=== PATIENT | female | born 1960 | race Hispanic/Latino ===

== ENCOUNTER 2022-08-04 13:33 | Inpatient (IN) | payer OTHER, SELFPAY ==
[~2022-08-04 13:33] MED LIST: Iopamidol-370 76% 500 ML 1 ML ONE
[2022-08-04] MEDS ORDERED: Boostrix 0.5 ML (Tdap) VIAL (>/=7 yrs of age) ONE (13:42)
[2022-08-04] MEDS ORDERED: Morphine 4 MG/ML VIAL ONE (13:42)
[2022-08-04] MEDS ORDERED: CEFAZOLIN 2 GM VIAL ONE (13:42)
[2022-08-04 13:47] LABS: #Eosinphils 0.2 thou/uL (0.0-0.7); #Lymphocytes 4.2 thou/uL (1.20-3.40); #Monocytes 0.7 thou/uL (0.11-0.59); #Neutrophils 8.4 thou/uL (1.40-6.50); %Basophils 0.4 % (0.0-1.0); %Eosinophils 1.1 % (0.0-10.0); %Lymphocytes 31.1 % (21.0-51.0); %Monocytes 5.2 % (0.0-10.0); %Neutrophils 62.2 % (42.0-75.0); Hemoglobin 13.4 g/dL (12.0-16.0); Mean Corpuscular HGB CONC 33.6 g/dL (32.0-36.0); Mean Corpuscular Hemoglobin 32.7 pg (27.0-31.0); Mean Corpuscular Volume 97.4 fl (78.0-98.0); Mean Platelet Volume 8.1 fL (7.4-10.4); Platelet Count 226 10x3/uL (130-400); RBC Distribution Width 12.1 % (11.5-14.5); Red Blood Cell (RBC) Count 4.11 mill/uL (4.20-5.40); White Blood Cell (WBC) Count 13.6 10x3/uL (4.8-10.8)
[2022-08-04 13:58] LABS: PTT 22.4 sec (22.9-36.1); Prothrombin Time 13.4 sec (12.0-14.7)
[2022-08-04] MEDS ORDERED: hydrALAZINE 20 MG/ML VIAL ONE (14:13)
[2022-08-04 14:14] LABS: ALT (SGPT) 48 U/L (8-55); AST (SGOT) 75 U/L (5-34); Albumin 4.3 g/dL (3.4-4.8); Alkaline Phosphatase 104 U/L (40-110); Anion Gap 13 mmol/L (10-20); BUN (Urea Nitrogen) 24 mg/dL (9.8-20.1); Bilirubin, Total 0.6 mg/dL (0.2-1.2); Calc. Creatinine Clearance 0 mL/min (70-130); Calcium 8.9 mg/dL (7.8-10.44); Carbon Dioxide 23 mmol/L (23-31); Chloride 107 mmol/L (98-107); Estimated GFR 83; Glucose 137 mg/dL (80-115); Potassium 3.2 mmol/L (3.5-5.1); Protein, Total 7.3 g/dL (5.8-8.1); Sodium 140 mmol/L (136-145)
[2022-08-04] MEDS ORDERED: FENTANYL 50 MCG/ML 1 ML VIAL ONE (14:32)
[2022-08-04] MEDS ORDERED: Ondansetron PF 4 MG/2 ML Vial ONE (14:41)
[2022-08-04] MEDS ORDERED: niCARdipine 25 MG/10 ML VIAL ONE (14:45)
[2022-08-04] MEDS ORDERED: Dextrose 5% in Water 1,000 ML IV PRN (15:11)
[2022-08-04] MEDS ORDERED: Dextrose 50% Abboject 50 ML SYRINGE SLOW IVP PRN (15:11)
[2022-08-04] MEDS ORDERED: Morphine 4 MG/ML VIAL SLOW IVP PRN (15:11)
[2022-08-04] MEDS ORDERED: TETANUS, DIPHTHERIA TOX,ADULT (TDVAX) 0.5 ML VIAL IM ONE (15:11)
[2022-08-04] MEDS ORDERED: Morphine 2 MG/ML VIAL SLOW IVP PRN (15:11)
[2022-08-04 16:22] LABS: SARS-CoV-2 NAA Rapid Test Not Detected (NotDetected)
[2022-08-04 17:24] VITALS: BMI 42.2
[2022-08-04] MEDS: Sodium Chloride 0.9% 1,000 ML IV SCH (17:29)
[2022-08-04] MEDS: Acetaminophen 325 MG TAB PO SCH ×2 (18:45→23:14)
[2022-08-04] MEDS: Ipratropium/Albuterol 3 ML NEB NEB SCH (19:07)
[2022-08-04] MEDS: Famotidine/PF 20 mg/2ml Vial SLOW IVP SCH (20:24)
[2022-08-05] MEDS: Sodium Chloride 0.9% 1,000 ML IV SCH ×2 (02:11→12:32)
[2022-08-05 04:09] LABS: #Lymphocytes 1.1 thou/uL (1.20-3.40); #Monocytes 0.9 thou/uL (0.11-0.59); #Neutrophils 6.2 thou/uL (1.40-6.50); %Lymphocytes 13.7 % (21.0-51.0); %Neutrophils 75.2 % (42.0-75.0); Hemoglobin 12.4 g/dL (12.0-16.0); Mean Corpuscular HGB CONC 33.9 g/dL (32.0-36.0); Mean Corpuscular Volume 97.4 fl (78.0-98.0); Mean Platelet Volume 7.8 fL (7.4-10.4); Platelet Count 205 10x3/uL (130-400); RBC Distribution Width 12.2 % (11.5-14.5); Red Blood Cell (RBC) Count 3.74 mill/uL (4.20-5.40); White Blood Cell (WBC) Count 8.2 10x3/uL (4.8-10.8)
[2022-08-05] MEDS: Ondansetron PF 4 MG/2 ML Vial IVP PRN ×2 (04:29→15:12)
[2022-08-05 04:32] LABS: Anion Gap 14 mmol/L (10-20); BUN (Urea Nitrogen) 18 mg/dL (9.8-20.1); Calc. Creatinine Clearance 130 mL/min (70-130); Calcium 8.5 mg/dL (7.8-10.44); Carbon Dioxide 21 mmol/L (23-31); Chloride 108 mmol/L (98-107); Estimated GFR 98; Glucose 152 mg/dL (80-115); Magnesium 1.7 mg/dL (1.6-2.6); Phosphorus 2.7 mg/dL (2.3-4.7); Potassium 3.8 mmol/L (3.5-5.1); Sodium 139 mmol/L (136-145)
[2022-08-05] MEDS: Acetaminophen 325 MG TAB PO SCH ×3 (05:26→17:44)
[2022-08-05] MEDS ORDERED: Potassium Phosphate 15 MMOL, Magnesium Sulfate 2 GM in Sodium Chloride 0.9% 250 ML 250 ML IVPB SCH (07:15)
[2022-08-05] MEDS ORDERED: Magnesium 2 GM/50 ML(in water) 2 GM in Premix Bag 1 BAG IVPB SCH (07:15)
[2022-08-05] MEDS: Ipratropium/Albuterol 3 ML NEB NEB SCH ×3 (07:36→18:33)
[2022-08-05] MEDS: Famotidine/PF 20 mg/2ml Vial SLOW IVP SCH ×2 (08:21→20:10)
[2022-08-05] MEDS ORDERED: Morphine 2 MG/ML VIAL SLOW IVP PRN (09:07)
[2022-08-05] MEDS ORDERED: Cyclobenzaprine 10 MG TAB PO PRN (09:08)
[2022-08-05] MEDS: hydrALAZINE 20 MG/ML VIAL SLOW IVP PRN ×2 (09:16→13:20)
[2022-08-05] MEDS: Senokot S 8.6-50 MG TAB PO SCH ×3 (09:27→20:09)
[2022-08-05] MEDS: Acetaminophen/Codeine 30-300mg Tablet PO SCH ×3 (09:31→20:08)
[2022-08-05] MEDS: Polyethylene Glycol 3350 17 GM Packet PO SCH (10:22)
[2022-08-05] MEDS ORDERED: Hydrochlorothiazide 25 MG TAB PO SCH (12:15)
[2022-08-05] MEDS ORDERED: Losartan 25 MG TAB PO SCH (12:15)
[2022-08-05] MEDS ORDERED: Sertraline 25 MG TAB PO SCH (12:45)
[2022-08-05] MEDS ORDERED: Lidocaine 1% (PF) 30 ML VIAL SC SCH (15:15)
[2022-08-05] MEDS: Gabapentin 300 MG CAP PO SCH ×2 (15:18→20:09)
[2022-08-05] MEDS: Scopolamine 1.5 mg/72 hour Patch TD SCH (15:21)
[2022-08-05] MEDS ORDERED: Amlodipine 5 MG TAB PO SCH (21:00)
[2022-08-06] MEDS: Acetaminophen 325 MG TAB PO SCH ×5 (00:06→23:38)
[2022-08-06] MEDS: Acetaminophen/Codeine 30-300mg Tablet PO SCH ×4 (03:59→20:29)
[2022-08-06 06:08] LABS: #Eosinphils 0.1 thou/uL (0.0-0.7); #Lymphocytes 1.4 thou/uL (1.20-3.40); #Monocytes 0.9 thou/uL (0.11-0.59); #Neutrophils 6.2 thou/uL (1.40-6.50); %Basophils 0.3 % (0.0-1.0); %Eosinophils 0.6 % (0.0-10.0); %Lymphocytes 15.9 % (21.0-51.0); %Monocytes 10.4 % (0.0-10.0); %Neutrophils 72.8 % (42.0-75.0); Hemoglobin 11.2 g/dL (12.0-16.0); Mean Corpuscular Hemoglobin 33.3 pg (27.0-31.0); Mean Corpuscular Volume 97.9 fl (78.0-98.0); Mean Platelet Volume 7.8 fL (7.4-10.4); Platelet Count 183 10x3/uL (130-400); RBC Distribution Width 12.1 % (11.5-14.5); Red Blood Cell (RBC) Count 3.36 mill/uL (4.20-5.40); White Blood Cell (WBC) Count 8.6 10x3/uL (4.8-10.8)
[2022-08-06 06:36] LABS: Anion Gap 10 mmol/L (10-20); BUN (Urea Nitrogen) 16 mg/dL (9.8-20.1); Calc. Creatinine Clearance 126 mL/min (70-130); Calcium 8.6 mg/dL (7.8-10.44); Carbon Dioxide 25 mmol/L (23-31); Chloride 102 mmol/L (98-107); Estimated GFR 95; Glucose 115 mg/dL (80-115); Magnesium 2.3 mg/dL (1.6-2.6); Phosphorus 3.6 mg/dL (2.3-4.7); Potassium 3.7 mmol/L (3.5-5.1); Sodium 133 mmol/L (136-145)
[2022-08-06] MEDS: Ipratropium/Albuterol 3 ML NEB NEB SCH ×3 (08:46→18:47)
[2022-08-06] MEDS: Senokot S 8.6-50 MG TAB PO SCH ×2 (09:18→20:28)
[2022-08-06] MEDS: Losartan 25 MG TAB PO SCH (09:18)
[2022-08-06] MEDS: Famotidine 20 MG TAB PO SCH ×2 (09:19→20:28)
[2022-08-06] MEDS: Hydrochlorothiazide 25 MG TAB PO SCH (09:19)
[2022-08-06] MEDS: Sertraline 25 MG TAB PO SCH (09:19)
[2022-08-06] MEDS: Gabapentin 300 MG CAP PO SCH ×3 (09:19→20:31)
[2022-08-06] MEDS: Polyethylene Glycol 3350 17 GM Packet PO SCH (09:25)
[2022-08-06] MEDS: Amlodipine 5 MG TAB PO SCH (20:32)
[2022-08-07] MEDS: Acetaminophen/Codeine 30-300mg Tablet PO SCH ×4 (04:15→21:44)
[2022-08-07] MEDS: Acetaminophen 325 MG TAB PO SCH ×3 (05:28→18:34)
[2022-08-07 06:14] LABS: #Eosinphils 0.2 thou/uL (0.0-0.7); #Lymphocytes 1.8 thou/uL (1.20-3.40); #Monocytes 0.8 thou/uL (0.11-0.59); #Neutrophils 4.3 thou/uL (1.40-6.50); %Basophils 0.5 % (0.0-1.0); %Eosinophils 2.5 % (0.0-10.0); %Monocytes 10.8 % (0.0-10.0); %Neutrophils 61.1 % (42.0-75.0); Hemoglobin 11.1 g/dL (12.0-16.0); Mean Corpuscular HGB CONC 34.9 g/dL (32.0-36.0); Mean Corpuscular Hemoglobin 34.2 pg (27.0-31.0); Mean Corpuscular Volume 97.8 fl (78.0-98.0); Mean Platelet Volume 7.8 fL (7.4-10.4); Platelet Count 190 10x3/uL (130-400); RBC Distribution Width 11.8 % (11.5-14.5); Red Blood Cell (RBC) Count 3.24 mill/uL (4.20-5.40)
[2022-08-07 06:36] LABS: Anion Gap 11 mmol/L (10-20); BUN (Urea Nitrogen) 20 mg/dL (9.8-20.1); Calc. Creatinine Clearance 129 mL/min (70-130); Calcium 8.7 mg/dL (7.8-10.44); Carbon Dioxide 27 mmol/L (23-31); Chloride 101 mmol/L (98-107); Estimated GFR 98; Glucose 108 mg/dL (80-115); Phosphorus 3.6 mg/dL (2.3-4.7); Potassium 3.7 mmol/L (3.5-5.1); Sodium 135 mmol/L (136-145)
[2022-08-07] MEDS: Ipratropium/Albuterol 3 ML NEB NEB SCH ×3 (06:45→18:48)
[2022-08-07] MEDS ORDERED: PHOS-NAK 1 PKT PACK PO SCH (08:00)
[2022-08-07] MEDS: Polyethylene Glycol 3350 17 GM Packet PO SCH (08:47)
[2022-08-07] MEDS: Hydrochlorothiazide 25 MG TAB PO SCH (08:47)
[2022-08-07] MEDS: Senokot S 8.6-50 MG TAB PO SCH ×2 (08:47→20:31)
[2022-08-07] MEDS: Losartan 25 MG TAB PO SCH (08:47)
[2022-08-07] MEDS: Sertraline 25 MG TAB PO SCH (08:47)
[2022-08-07] MEDS: Famotidine 20 MG TAB PO SCH ×2 (08:48→20:32)
[2022-08-07] MEDS: Acetaminophen/Codeine 30-300mg Tablet PO PRN ×2 (08:48→20:31)
[2022-08-07] MEDS: Gabapentin 300 MG CAP PO SCH ×3 (08:48→20:32)
[2022-08-07] MEDS: Amlodipine 5 MG TAB PO SCH (20:30)
[2022-08-08] MEDS: Acetaminophen 325 MG TAB PO SCH ×5 (00:20→23:35)
[2022-08-08] MEDS: Acetaminophen/Codeine 30-300mg Tablet PO SCH ×4 (04:20→21:14)
[2022-08-08] MEDS: Acetaminophen/Codeine 30-300mg Tablet PO PRN (05:33)
[2022-08-08] MEDS: Ipratropium/Albuterol 3 ML NEB NEB SCH ×3 (07:37→21:08)
[2022-08-08] MEDS: Polyethylene Glycol 3350 17 GM Packet PO SCH (09:11)
[2022-08-08] MEDS: Losartan 25 MG TAB PO SCH (09:11)
[2022-08-08] MEDS: Famotidine 20 MG TAB PO SCH ×2 (09:11→21:13)
[2022-08-08] MEDS: Sertraline 25 MG TAB PO SCH (09:12)
[2022-08-08] MEDS: Hydrochlorothiazide 25 MG TAB PO SCH (09:12)
[2022-08-08] MEDS: Senokot S 8.6-50 MG TAB PO SCH ×2 (09:12→21:13)
[2022-08-08] MEDS: Gabapentin 300 MG CAP PO SCH ×3 (09:12→21:14)
[2022-08-08] MEDS: Scopolamine 1.5 mg/72 hour Patch TD SCH (15:32)
[2022-08-08] MEDS: Amlodipine 5 MG TAB PO SCH (21:13)
[2022-08-09] MEDS: Acetaminophen/Codeine 30-300mg Tablet PO SCH ×3 (04:25→17:52)
[2022-08-09] MEDS: Acetaminophen 325 MG TAB PO SCH ×2 (05:38→13:02)
[2022-08-09] MEDS: Ipratropium/Albuterol 3 ML NEB NEB SCH ×2 (06:54→14:36)
[2022-08-09] MEDS: Senokot S 8.6-50 MG TAB PO SCH (09:12)
[2022-08-09] MEDS: Losartan 25 MG TAB PO SCH (09:12)
[2022-08-09] MEDS: Polyethylene Glycol 3350 17 GM Packet PO SCH (09:12)
[2022-08-09] MEDS: Sertraline 25 MG TAB PO SCH (09:13)
[2022-08-09] MEDS: Gabapentin 300 MG CAP PO SCH ×2 (09:14→17:46)
[2022-08-09] MEDS: Famotidine 20 MG TAB PO SCH (09:14)
[2022-08-09] MEDS: Hydrochlorothiazide 25 MG TAB PO SCH (09:14)
[2022-08-09 09:35] VITALS: TEMP 98.2
[2022-08-09 14:01] VITALS: BP 143/94
== END 2022-08-09 18:07 | disposition home or self-care (01) | DRG 964 ==
LOC: ERS 13:33 → CCU 16:18 → SURG B 08-05 18:59
PROVIDERS: ADMIT Surgery; ATTEND Surgery
DX: S06.6XAA Traumatic subarachnoid hemorrhage with loss of consciousness status unknown, initial encounter (principal); S14.102A Unspecified injury at C2 level of cervical spinal cord, initial encounter; S12.100A Unspecified displaced fracture of second cervical vertebra, initial encounter for closed fracture; S36.030A Superficial (capsular) laceration of spleen, initial encounter; S12.600A Unspecified displaced fracture of seventh cervical vertebra, initial encounter for closed fracture; S36.892A Contusion of other intra-abdominal organs, initial encounter; S27.322A Contusion of lung, bilateral, initial encounter; Z20.822 Contact with and (suspected) exposure to COVID-19; Z23 Encounter for immunization; S02.113A Unspecified occipital condyle fracture, initial encounter for closed fracture; S23.41XA Sprain of ribs, initial encounter; S41.111A Laceration without foreign body of right upper arm, initial encounter; R40.2422 Glasgow coma scale score 9-12, at arrival to emergency department; R40.2362 Coma scale, best motor response, obeys commands, at arrival to emergency department; R40.2132 Coma scale, eyes open, to sound, at arrival to emergency department; R40.2242 Coma scale, best verbal response, confused conversation, at arrival to emergency department; I10 Essential (primary) hypertension; S80.212A Abrasion, left knee, initial encounter; S80.211A Abrasion, right knee, initial encounter; E87.6 Hypokalemia; E83.42 Hypomagnesemia; E83.39 Other disorders of phosphorus metabolism; V43.52XA Car driver injured in collision with other type car in traffic accident, initial encounter; Y92.410 Unspecified street and highway as the place of occurrence of the external cause; Z90.49 Acquired absence of other specified parts of digestive tract; Z79.899 Other long term (current) drug therapy
CPT/HCPCS: 36415; 70450; 70498; 71045; 71260; 72125; 72141; 74177; 80048; 80053; 83605; 83735; 84100; 85025; 85610; 85730; 86850; 86900; 86901; 90471; 90715; 94640; 96361; 96365; 96366; 96375; G0390; J0360; J2001; J2270; J2272; J2405; J3010; J3475; J7050; J7620; Q9967; S0028